=== PATIENT | male | born 1975 | race Hispanic/Latino ===

== ENCOUNTER 2019-07-11 10:03 | Emergency (ER) | payer OTHER, SELFPAY ==
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
[2019-07-11] MEDS ORDERED: IBUPROFEN 400 MG TAB ONE (11:12)
== END 2019-07-11 11:22 | disposition home or self-care (01) ==
LOC: ER 10:03
DX: S80.02XA Contusion of left knee, initial encounter (principal); S80.212A Abrasion, left knee, initial encounter; V43.53XA Car driver injured in collision with pick-up truck in traffic accident, initial encounter; Y93.89 Activity, other specified; Y92.410 Unspecified street and highway as the place of occurrence of the external cause
CPT/HCPCS: 99284

== ENCOUNTER 2021-06-30 20:48 | Emergency (ER) | payer OTHER, SELFPAY ==
--- NOTE | 2021-07-01 01:07 | ER ---
Nurse's Notes [facility] Name: Isma You Age: 45 yrs Sex: Male : 1975 Arrival Date: 06/30/2021 Time: 20:50 Bed Treatment Private MD: Diagnosis: Cough;Coronavirus infection, unspecified Presentation: 06/30 20:58 Chief complaint: Patient states: Cough, shortness of breath, chest pains, chills x 3 kg days. Coronavirus screen: Client denies travel out of the [place] in the last 14 days. At this time, unable to obtain information related to travel outside the [place] Client presents with at least one sign or symptom that may indicate coronavirus-19. Standard/surgical mask placed on the client. Provider contacted for isolation considerations. Client reports previous positive COVID test result. Date of collection: June 23, 2021. Ebola Screen: Patient negative for fever greater than or equal to 101.5 degrees Fahrenheit, and additional compatible Ebola Virus Disease symptoms Patient denies exposure to infectious person. Patient denies travel to an Ebola-affected area in the 21 days before illness onset. Initial Sepsis Screen: Does the patient meet any 2 criteria? No. Patient's initial sepsis screen is negative. Does the patient have a suspected source of infection? No. Patient's initial sepsis screen is negative. Risk Assessment: Do you want to hurt yourself or someone else? Patient reports no desire to harm self or others. Onset of symptoms was June 27, 2021. 20:58 Method Of Arrival: Wheelchair kg 20:58 Acuity: LORENA 3 kg Triage Assessment: 21:02 General: Appears uncomfortable, Behavior is calm, cooperative, appropriate for age, kg quiet. Pain: Complains of pain in chest. Respiratory: Reports shortness of breath at rest on exertion cough that is productive, Onset: The symptoms/episode began/occurred 3 days ago, the patient has mild shortness of breath. Historical: - Allergies: 21:02 Morphine; kg - Home Meds: 21:02 gabapentin 300 mg oral tab every 8 hours [Active]; tizanidine 2 mg oral tab every 8 kg hours [Active]; Medrol 4 mg Oral tab 1 tab once daily [Active]; azithromycin 500 mg Oral tab 1 tab once daily [Active]; - PMHx: 21:02 Arthritis; kg - PSHx: 21:02 Back SX; Nerve stimulator; Neck Sx; Appendectomy; kg - Immunization history:: Adult Immunizations up to date, Client reports receiving the 1st dose of the Covid vaccine, June 16, 2021 [facility]. - Social history:: Smoking status: Patient reports the use of cigarette tobacco products, smokes one-half pack cigarettes per day. Screenin:07 Abuse screen: Denies threats or abuse. Denies injuries from another. Nutritional kg screening: No deficits noted. Tuberculosis screening: No symptoms or risk factors identified. Fall Risk None identified. Vital Signs: 20:58 BP 126 / 83; Pulse 64; Resp 21; Temp 98.7(O); Pulse Ox 100% on R/A; Weight 79.38 kg; kg Height 5 ft. 9 in. (175.26 cm) (R); Pain 7/10; 20:58 Body Mass Index 25.84 (79.38 kg, 175.26 cm) kg ED Course: 20:50 Patient arrived in ED. wm 21:02 Triage completed. kg 21:02 Arm band placed on right wrist. kg 21:07 Patient has correct armband on for positive identification. kg 21:25 River Lee MD is Attending Physician. tw4 21:40 XRAY Chest Pa And Lat (2 Views) In Process Unspecified. EDOR 07/01 00:50 Misael Garcia, RN is Primary Nurse. em 01:11 No provider procedures requiring assistance completed. Patient did not have IV access em during this emergency room visit. Administered Medications: 01:11 Drug: TORadol (ketorolac) 60 mg {Note: split dose into left and right deltoid.} Route: em IM; Site: left deltoid; 01:17 Follow up: Response: No adverse reaction em Outcome: 01:07 Discharge ordered by . tw4 01:11 Discharged to home ambulatory. em 01:11 Condition: good 01:11 Discharge instructions given to patient, Instructed on discharge instructions, follow up and referral plans. medication usage, Demonstrated understanding of instructions, follow-up care, medications, Prescriptions given X 2. 01:18 Patient left the ED. em Signatures: Dispatcher [employer] [facility] Misael Garcia, RN RN em River Lee MD MD tw4 Karin Robledo, RN RN kg Екатерина Bravo Corrections: (The following items were deleted from the chart) 06/30 21:06 21:02 [place] Meds: None; kg kg
--- NOTE | 2021-07-01 01:07 | EDPHYS ---
Physician Documentation [facility] Name: Isma You Age: 45 yrs Sex: Male : 1975 Arrival Date: 06/30/2021 Time: 20:50 Bed Treatment Private MD: ED Physician River Lee HPI: 07/01 02:22 This 45 yrs old Male presents to ER via Wheelchair with complaints of tw4 Shortness Of Breath, Chest Pain > 30 y/o, +COVID. 02:22 The patient has shortness of breath with light activity. Onset: The symptoms/episode tw4 began/occurred last week. Duration: The symptoms are continuous, and are unchanged since they started. The patient's shortness of breath has no apparent modifying factors. Associated signs and symptoms: The patient has no apparent associated signs or symptoms. Severity of symptoms: At their worst the symptoms were moderate in the emergency department the symptoms are unchanged. The patient has not experienced similar symptoms in the past. Historical: - Allergies: 06/30 21:02 Morphine; kg - Home Meds: 21:02 gabapentin 300 mg oral tab every 8 hours [Active]; tizanidine 2 mg oral tab every 8 kg hours [Active]; Medrol 4 mg Oral tab 1 tab once daily [Active]; azithromycin 500 mg Oral tab 1 tab once daily [Active]; - PMHx: 21:02 Arthritis; kg - PSHx: 21:02 Back SX; Nerve stimulator; Neck Sx; Appendectomy; kg - Immunization history:: Adult Immunizations up to date, Client reports receiving the 1st dose of the Covid vaccine, June 16, 2021 [facility]. - Social history:: Smoking status: Patient reports the use of cigarette tobacco products, smokes one-half pack cigarettes per day. ROS: 07/01 02:22 Constitutional: Negative for fever, chills, and weight loss, Eyes: Negative for injury, tw4 pain, redness, and discharge, Cardiovascular: Negative for chest pain, palpitations, and edema, Abdomen/GI: Negative for abdominal pain, nausea, vomiting, diarrhea, and constipation, Back: Negative for injury and pain, MS/Extremity: Negative for injury and deformity, Skin: Negative for injury, rash, and discoloration, Neuro: Negative for headache, weakness, numbness, tingling, and seizure. Respiratory: Positive for shortness of breath. Exam: 02:22 Constitutional: This is a well developed, well nourished patient who is awake, alert, tw4 and in no acute distress. Head/Face: Normocephalic, atraumatic. Chest/axilla: Normal chest wall appearance and motion. Nontender with no deformity. No lesions are appreciated. Cardiovascular: Regular rate and rhythm with a normal S1 and S2. No gallops, murmurs, or rubs. Normal PMI, no JVD. No pulse deficits. Respiratory: Lungs have equal breath sounds bilaterally, clear to auscultation and percussion. No rales, rhonchi or wheezes noted. No increased work of breathing, no retractions or nasal flaring. Abdomen/GI: Soft, non-tender, with normal bowel sounds. No distension or tympany. No guarding or rebound. No evidence of tenderness throughout. Back: No spinal tenderness. No costovertebral tenderness. Full range of motion. MS/ Extremity: Pulses equal, no cyanosis. Neurovascular intact. Full, normal range of motion. Neuro: Awake and alert, GCS 15, oriented to person, place, time, and situation. Cranial nerves II-XII grossly intact. Motor strength 5/5 in all extremities. Sensory grossly intact. Cerebellar exam normal. Normal gait. Vital Signs: 06/30 20:58 BP 126 / 83; Pulse 64; Resp 21; Temp 98.7(O); Pulse Ox 100% on R/A; Weight 79.38 kg; kg Height 5 ft. 9 in. (175.26 cm) (R); Pain 7/10; 20:58 Body Mass Index 25.84 (79.38 kg, 175.26 cm) kg MDM: 07/01 00:46 Patient medically screened. tw4 02:22 Antibiotic administration: Not indicated. Data reviewed: vital signs, nurses notes. tw4 Data interpreted: Pulse oximetry: Interpretation: normal. Counseling: I had a detailed discussion with the patient and/or guardian regarding: the historical points, exam findings, and any diagnostic results supporting the discharge/admit diagnosis. Special discussion: I discussed with the patient/guardian in detail that at this point there is no indication for admission to the hospital. It is understood, however, that if the symptoms persist or worsen the patient needs to return immediately for re-evaluation. 06/30 21:26 Order name: COVID-19 : Document "Date of Symptom Onset" if Symptomatic. tw4 06/30 21:26 Order name: CORONAVIRUS EDSD 06/30 21:07 Order name: XRAY Chest Pa And Lat (2 Views) kg Administered Medications: 01:11 Drug: TORadol (ketorolac) 60 mg {Note: split dose into left and right deltoid.} Route: em IM; Site: left deltoid; 01:17 Follow up: Response: No adverse reaction em Disposition Summary: 07/01/21 01:07 Discharge Ordered Location: Home tw4 Problem: new tw4 Symptoms: have improved tw4 Condition: Stable tw4 Diagnosis - Cough tw4 - Coronavirus infection, unspecified tw4 Followup: tw4 - With: Private Physician - When: Upon discharge from the Emergency Department - Reason: Recheck today's complaints, Continuance of care, Re-evaluation by your physician Discharge Instructions: - Discharge Summary Sheet tw4 - Upper Respiratory Infection, Adult tw4 - Cough, Adult tw4 - COVID-19 tw4 Forms: - Medication Reconciliation Form tw4 - Thank You Letter tw4 - Antibiotic Education tw4 - Prescription Opioid Use tw4 Prescriptions: - ProAir HFA 90 mcg/actuation Inhalation HFA aerosol inhaler - inhale 2 puff by INHALATION route 4 times per day; 1 puff; Refills: 0, Product tw4 Selection Permitted - Tessalon Perles 100 mg Oral Capsule - take 1 capsule by ORAL route every 8 hours As needed; 15 capsule; Refills: 0, tw4 Product Selection Permitted Signatures: Dispatcher [employer] Misael Pacheco, RN RN River Abraham MD MD tw4 Karin Robledo RN RN kg Corrections: (The following items were deleted from the chart) 06/30 21:06 21:02 Home Meds: None; kg kg
[2021-07-01 01:22] VITALS: BP 126/83; TEMP 98.7; O2SAT 100
[2021-07-01] MEDS ORDERED: KETOROLAC 30 MG/ML INJ ONE (01:26)
--- NOTE | 2021-07-01 11:53 | RAD REPORT ---
EXAM DESCRIPTION: RAD - Chest Pa And Lat (2 Views) - 06/30/2021 10:40 pm CLINICAL HISTORY: PAIN Prolonged technical malfunction delayed the final written report. COMPARISON: January 2019 TECHNIQUE: Frontal and lateral views of the chest were obtained. FINDINGS: The lungs are clear. Interstitial pattern matches comparison. Neurostimulator wires have been placed into the lower thoracic central canal since the prior study. Heart size is normal and lucy tral vasculature is within normal limits. No pleural effusion or pneumothorax seen. No acute bony f inding noted. No aortic abnormality. IMPRESSION: No acute cardiopulmonary process. No significant changes from comparison.
== END 2021-07-01 01:18 | disposition home or self-care (01) ==
LOC: ER 20:48
DX: U07.1 COVID-19 (principal); F17.210 Nicotine dependence, cigarettes, uncomplicated; Z88.5 Allergy status to narcotic agent
CPT/HCPCS: 71046; 96372; 99283

== ENCOUNTER 2021-12-21 00:13 | Emergency (ER) | payer OTHER ==
[2021-12-21 01:20] LABS: Absolute Lymphocytes (CBC) 2.5 K/uL (0.7-4.9); Lymphocytes % 21.2 % (15.3-44.8); MPV 7.9 fL (7.6-11.3); RBC Red Blood Cell Count 5.01 M/uL (4.33-5.43)
[2021-12-21 01:24] LABS: Urine Blood Negative (Negative); Urine Glucose Negative (Negative); Urine Protein Negative (Negative); Urine Specific Gravity 1.025 (1.005-1.030); Urine pH 5.5 (5.0-7.0)
[2021-12-21] MEDS ORDERED: NA CHLORIDE 0.9% 1,000 ML ONE (01:24)
[2021-12-21] MEDS ORDERED: FENTANYL CITR 100 MCG/2 ML ONE ×2 (01:24→05:22)
[2021-12-21] MEDS ORDERED: ONDANSETRON 4 MG/2 ML VIAL ONE (01:24)
[2021-12-21 01:45] LABS: ALT/SGPT 22 U/L (12-78); AST/SGOT 19 U/L (15-37); Albumin 3.8 g/dL (3.4-5.0); Alkaline Phosphatase 114 U/L (45-117); BUN Blood Urea Nitrogen 18 mg/dL (7-18); Bicarbonate 31 mmol/L (21-32); Bilirubin Direct < 0.1 mg/dL (0-0.2); Bilirubin Total 0.1 mg/dL (0.2-1.0); Glucose Level 96 mg/dL (74-106); Potassium 4.2 mmol/L (3.5-5.1); Protein, Total 7.5 g/dL (6.4-8.2); Sodium Level 140 mmol/L (136-145)
[2021-12-21 01:46] LABS: Lipase 105 U/L (73-393)
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
[2021-12-21] MEDS ORDERED: KETOROLAC 30 MG/ML INJ ONE (05:25)
[2021-12-21 06:16] VITALS: TEMP 98
[2021-12-21 06:21] VITALS: BP 115/72; O2SAT 100
--- NOTE | 2021-12-22 18:07 | RAD REPORT ---
EXAM DESCRIPTION: CT - Abdomen Pelvis W Contrast - 12/21/2021 8:33 am CLINICAL HISTORY: The patient is 46 years old and is Male; FLANK PAIN TECHNIQUE: Axial computed tomography images of the abdomen and pelvis with intravenous contrast. S agittal and coronal reformatted images were created and reviewed. This CT exam was performed using one or more of the following dose reduction techniques: automated exposure control, adjustment of t he mA and/or kV according to patient size, and/or use of iterative reconstruction technique. COMPARISON: CT abdomen pelvis July 25, 2018. FINDINGS: Lung bases: Unremarkable. No mass. No consolidation. ABDOMEN: Liver: Unremarkable. No mass. Gallbladder and bile ducts: Unremarkable. No calcified stones. No ductal dilation. Pancreas: No findings to suggest acute pancreatitis. No mass visualized. No ductal dilation. Spleen: Unremarkable. No splenomegaly. Adrenals: Unremarkable. No mass. Kidneys and ureters: Unremarkable. No solid mass. No hydronephrosis. Stomach and bowel: No bowel dilatation or obstruction. No bowel wall thickening. PELVIS: Appendix: No findings to suggest acute appendicitis. Bladder: Unremarkable. No mass. Reproductive: Unremarkable as visualized. ABDOMEN and PELVIS: Intraperitoneal space: Unremarkable. No free air. No significant fluid collection. Bones/joints: Vertebral Schmorl's nodes. Bone island right pelvis. No acute fracture. No dislocation. Soft tissues: Unremarkable. Vasculature: Unremarkable. No abdominal aortic aneurysm. Lymph nodes: No pathologically enlarged lymph nodes. Tubes, lines and devices: Previous lumbar surgery with interbody devices at L3-4 and L4-5. Lucenc ies adjacent to the L5 pedicle screws suggest hardware loosening. Spinal stimulator device noted. IMPRESSION: 1. No acute obstructive or inflammatory process identified. 2. Previous lumbar surgery with interbody devices at L3-4 and L4-5. Lucencies adjacent to the L5 pe dicle screws suggest hardware loosening. 3. Spinal stimulator device noted. Electronically signed by: Ansley Felix MD 12/21/2021 4:48 AM KILN HEAD HOUSE OPERATOR Due to temporary technical issues with the PACS/Fluency reporting system, reports are being signed by the in house radiologists without review as a courtesy to insure prompt reporting. The interpreting radiologist is fully responsible for the content of the report.
== END 2021-12-21 06:00 | disposition home or self-care (01) ==
LOC: ER 00:13
DX: S39.092A Other injury of muscle, fascia and tendon of lower back, initial encounter (principal); F17.210 Nicotine dependence, cigarettes, uncomplicated; Z88.5 Allergy status to narcotic agent; Z88.8 Allergy status to other drugs, medicaments and biological substances
CPT/HCPCS: 85025; 80048; 36415; 80076; 81003; 83690; 74177; 96375; 96374; 99284; Q9967; J3010 ×2; J7030; J2405